=== PATIENT | female | born 1960 | race African-American/Black ===

== ENCOUNTER 2016-12-03 10:24 | Emergency (ER) | payer OTHER ==
[~2016-12-03] VITALS: Ht 167.6 cm; Wt 97.7 kg
[~2016-12-03 10:24] MED LIST: SERT100T12 PO
[2016-12-03] MEDS ORDERED: QUET400T PO (10:36)
[2016-12-03] MEDS ORDERED: KETOROLAC TROMETHAMINE 60 MG/2 ML VIAL IM ONE (11:30)
[2016-12-03 12:24] VITALS: BP 115/73
== END 2016-12-03 12:57 | disposition home or self-care (01) ==
LOC: EMS 10:26
DX: S83.92XA Sprain of unspecified site of left knee, initial encounter (principal); M17.12 Unilateral primary osteoarthritis, left knee; X58.XXXA Exposure to other specified factors, initial encounter; Y93.01 Activity, walking, marching and hiking; Y92.89 Other specified places as the place of occurrence of the external cause; Y99.8 Other external cause status
CPT/HCPCS: 29505; 73562; 96372; 99284; J1885

== ENCOUNTER 2021-06-16 17:28 | Emergency (ER) | payer OTHER ==
[~2021-06-16] VITALS: Ht 167.6 cm; Wt 95.5 kg
[~2021-06-16 17:28] MED LIST changes: +QUET400T PO; +SERT-162 PO; -SERT100T12 PO
[2021-06-16 20:15] VITALS: BP 134/77
[2021-06-16] MEDS ORDERED: HYDROCODONE/ACETAMINOPHEN 5-325 MG TABLET PO ONE (20:30)
== END 2021-06-16 20:43 | disposition home or self-care (01) ==
LOC: EMS 17:33
DX: S39.012A Strain of muscle, fascia and tendon of lower back, initial encounter (principal); X58.XXXA Exposure to other specified factors, initial encounter; Y93.89 Activity, other specified; Y92.89 Other specified places as the place of occurrence of the external cause; Y99.8 Other external cause status
CPT/HCPCS: 99283

== ENCOUNTER 2022-10-04 16:32 | Emergency (ER) | payer OTHER ==
[~2022-10-04] VITALS: Ht 170.2 cm; Wt 84.1 kg
[2022-10-04 16:39] VITALS: BP 113/74
[2022-10-04] MEDS ORDERED: CYCLOBENZAPRINE HCL 10 MG TABLET PO ONE (21:00)
[2022-10-04] MEDS ORDERED: LIDOCAINE 5% TRANSDERMAL PATCH TD ONE (21:00)
[2022-10-04] MEDS ORDERED: IBUPROFEN 600 MG TABLET PO ONE (21:00)
[2022-10-04] MEDS ORDERED: CYCL-448 PO (21:03)
[2022-10-04] MEDS ORDERED: IBUP-1492 PO (21:03)
== END 2022-10-04 22:11 | disposition home or self-care (01) ==
LOC: EMS 16:45
DX: S39.012A Strain of muscle, fascia and tendon of lower back, initial encounter (principal); M54.32 Sciatica, left side; G89.29 Other chronic pain; M25.569 Pain in unspecified knee; M54.9 Dorsalgia, unspecified; F32.A Depression, unspecified; F17.210 Nicotine dependence, cigarettes, uncomplicated; Z98.890 Other specified postprocedural states; Z96.659 Presence of unspecified artificial knee joint; X58.XXXA Exposure to other specified factors, initial encounter; Y93.89 Activity, other specified; Y92.89 Other specified places as the place of occurrence of the external cause; Y99.8 Other external cause status
CPT/HCPCS: 99284; Z7502; Z7610